=== PATIENT | male | born 1995 | race Two or more races ===

== ENCOUNTER 2019-10-12 01:11 | Emergency (ER) | payer SELFPAY ==
[~2019-10-12] VITALS: Ht 175.3 cm; Wt 79.5 kg
[2019-10-12 01:13] VITALS: BP 153/111
== END 2019-10-12 01:55 ==
LOC: ER 01:12
DX: Z00.00 Encounter for general adult medical examination without abnormal findings (principal); Z87.891 Personal history of nicotine dependence
CPT/HCPCS: 99283